=== PATIENT | female | born 1990 | race Caucasian/White ===

== ENCOUNTER 2016-03-31 16:29 | Outpatient (CLI) | payer OTHER ==
[~2016-03-31 16:29] MED LIST: FERROUS SULFAT325 M1 PO; PRENATAL VITAMINS PO; PRILOSEC20 MG PO
--- NOTE | 2016-03-31 18:49 | DIAGNOSTIC IMAGING REPORT ---
PROCEDURE: US OB DETAILED ANATOMIC INDICATION: ANATOMY TECHNIQUE: Collins scale, color, and spectral Doppler images of the second trimester gravid uterus were obtained. COMPARISON: 01/22/2016 FINDINGS: A single living intrauterine is in variable presentation. There is regular cardiac activity at a rate of 138 beats per minute. The placenta is anterior and away from the internal cervical os. The cervix is closed measuring approximately 5.9 cm in length. The amniotic fluid volume is subjectively normal. Biparietal diameter 4.7 cm, 20 weeks 2 days Head circumference 18.0 cm, 20 weeks 3 days Abdominal circumference 14.8 cm, 20 weeks 1 day Femur length 3.4 cm, 20 weeks 4 days Head to abdominal circumference ratio and femur length to abdominal circumference ratios are normal. Estimated weight 345 g plus/minus 52 g Composite gestational age 20 weeks 3 days There was visualization of a number of normal structures including the intracranial contents, facial features, nuchal region, spine, four-chamber heart and outflow tracts to the extent that could be visualized, diaphragm, fluid-filled stomach, kidneys, abdomen, urinary bladder, upper and lower extremities, and genitals. A three-vessel umbilical cord, normal and placental cord insertion sites were seen. IMPRESSION: 1. Single living intrauterine with a composite gestational age of 20 weeks 3 days, in good agreement with the clinically assigned gestational age of 20 weeks 2 days. 2. Symmetric growth and normal anatomy.
== END 2016-03-31 23:00 | disposition home or self-care (01) ==
LOC: US SRH 16:29
DX: Z34.82 Encounter for supervision of other normal pregnancy, second trimester (principal)

== ENCOUNTER 2016-08-15 06:00 | Inpatient (IN) | payer OTHER ==
[~2016-08-15] VITALS: Ht 165.1 cm; Wt 91.6 kg
[2016-08-15] VITALS (9 sets, daily range): BP systolic 116–142; BP diastolic 58–80
--- NOTE | 2016-08-15 13:38 | Progress Note ---
Subjective General No concerns per mom, nursing staff. Post epidural. Doing well Physical Exam General Appearance Alert, No acute distress Abdomen Other FHT: 140 +accels no decels LAB Results Laboratory Tests 08/15 0625 Hematology WBC (4.5 - 11.5 K/uL) 11.0 RBC (4.00 - 5.20 M/uL) 4.28 Hgb (12.0 - 16.0 gm/dL) 12.0 Hct (36.0 - 46.0 %) 36.3 MCV (80 - 100 fL) 85 MCH (26 - 34 pg) 28 RDW (11.6 - 14.8 %) 15.6 Neut % (Auto) (50 - 75 %) 74.1 Lymph % (Auto) (25 - 40 %) 19.0 [place] % (Auto) (3 - 14 %) 5.2 Eos % (Auto) (0 - 4 %) 1.3 Baso % (Auto) (0 - 2 %) 0.4 Plt Count, EDTA (150 - 400 K/uL) 216 PUBS MCHC (31 - 37 g/dL) 33 Assessment and Plan Problem List 1. Normal labor Plan continue pitosin induction and monitor
--- NOTE | 2016-08-15 18:34 | Progress Note ---
Subjective General Doing well. Comfortable with epidural. Physical Exam Vital Signs / I&Os 119/72 HR 82 FHT: 120 + accels no decels. VE: 5cm/ 80%/-2 well applied Assessment and Plan Problem List 1. Normal labor Plan continue pitosin induction and expectant management
--- NOTE | 2016-08-15 20:54 | Progress Note ---
Subjective General full note dictated OA position no nuchal cord. Mom/baby well post
--- NOTE | 2016-08-15 20:54 | Progress Note ---
Subjective General full note dictated OA position no nuchal cord. Mom/baby well post
[2016-08-16 01:05] VITALS: BP 120/56
[2016-08-16 04:51] VITALS: BP 108/55
[2016-08-16 08:00] VITALS: BP 114/55
--- NOTE | 2016-08-16 08:22 | Discharge Summary ---
Discharge Summary Report Admit Date 08/15/16 Discharge Date 08/16/16 Admission Diagnosis IUP, term, induction Discharge Diagnosis same and Brief History 39 6/7 weeks gestation induction at maternal request. Induction with pitosin Hospital Course Uncomplicted induction to General Appearance Alert, Cooperative HEENT Atraumatic Lungs Clear to auscultation, Normal air movement Cardiovascular Regular Rate, No murmurs Abdomen Soft, uterus firm at umbillicus Lab/Imaging Laboratory Tests 08/15 2053 Hematology WBC Cancelled RBC Cancelled Hgb Cancelled Hct Cancelled MCV Cancelled MCH Cancelled RDW Cancelled Plt Count, EDTA Cancelled PUBS MCHC Cancelled Discharge Instructions/Meds d/c home; routine care, call for concerns, f/u at 6 weeks pp check.
--- NOTE | 2016-08-16 09:09 | Provider's Discharge Care Plan ---
Problem, Goal, Plan Problem List 1. (normal spontaneous vaginal delivery) Instructions: Follow up as directed, routine pp care, ok milla pack 2. (normal spontaneous vaginal delivery) 3. Normal labor
[2016-08-16 11:45] VITALS: BP 119/60
[2016-08-16 16:40] VITALS: BP 122/80
== END 2016-08-16 22:27 | disposition home or self-care (01) | DRG 775 ==
LOC: OB SRH 06:00
PROVIDERS: ADMIT Family Medicine
PROC: 10E0XZZ Delivery of Products of Conception, External Approach (ICD-10-PCS; principal; 2016-08-15)
PROC: 3E033VJ Introduction of Other Hormone into Peripheral Vein, Percutaneous Approach (ICD-10-PCS; 2016-08-15)
DX: O99.824 Streptococcus B carrier state complicating childbirth (principal); Z37.0 Single live birth; Z3A.39 39 weeks gestation of pregnancy
CPT/HCPCS: 40003; 40011; 95059